=== PATIENT | female | born 1940 | race Caucasian/White ===

== ENCOUNTER → 2016-11-15 | Outpatient (CLI) | payer OTHER ==
[2016-11-15 10:45] LABS: BASOPHILS # (AUTO) 0.01 10*3/UL; BASOPHILS % (AUTO) 0.2 % (0-1); EOSINOPHILS % (AUTO) 2.3 % (0-8); HEMATOCRIT 38.1 % (37.0-47.0); HEMOGLOBIN 12.2 g/dL (12.0-16.0); IMM GRAN % (AUTO) 0.2 % (0-5); IMM GRAN# (AUTO) 0.01 10*3/UL; LYMPHOCYTES # (AUTO) 1.05 10*3/uL; LYMPHOCYTES % (AUTO) 17.6 % (10-50); MEAN PLATELET VOLUME 11.1 FL (7.4-12.2); MONOCYTES # (AUTO) 0.38 10*3/UL (0.3-0.8); MONOCYTES % (AUTO) 6.4 % (5-15); NEUTROPHILS # (AUTO) 4.38 10*3/UL; NEUTROPHILS % (AUTO) 73.3 % (50-80); RDW COEFFICIENT OF VARIATION 16.2 % (11.5-14.5); WHITE BLOOD COUNT 5.97 10^3/uL (4.8-10.8)
[2016-11-15 10:52] LABS: PLATELET MORPHOLOGY COMMENT NORMAL MORPHOLOGY (NORM)
[2016-11-15 10:55] LABS: BILIRUBIN,TOTAL 0.7 mg/dL (0.3-1.2); CALCIUM 10.2 mg/dL (8.7-10.7); LDL CHOLESTEROL,CALCULATED 107.6 mg/dL; POTASSIUM 4.1 meq/L (3.8-5.2); TOTAL PROTEIN 7.8 g/dL (6.1-8.0)
[2016-11-15 11:14] LABS: HEMOGLOBIN A1C 6.29 % (4.2-6.0); MEAN BLOOD GLUCOSE (CALC) 123.457 mg/dL
[2016-11-15 12:37] LABS: FREE T4 (FREE THYROXINE) 1.26 ng/dL (0.93-1.71)
== END ==
LOC: LAB 10:20
PROVIDERS: ATTEND Internal Medicine
DX: E11.9 Type 2 diabetes mellitus without complications (principal); E78.5 Hyperlipidemia, unspecified; D64.9 Anemia, unspecified; I10 Essential (primary) hypertension; E03.2 Hypothyroidism due to medicaments and other exogenous substances
CPT/HCPCS: 36415; 80053; 80061; 82728; 83036; 83540; 83550; 84439; 84443; 85025

== ENCOUNTER → 2017-03-13 | Outpatient (CLI) | payer OTHER ==
[2017-03-13 11:48] LABS: HEMOGLOBIN A1C 5.34 % (4.2-6.0)
[2017-03-13 11:52] LABS: CHOL/HDL RATIO 3.93 RATIO (0-4.0); LDL CHOLESTEROL,CALCULATED 169.8 mg/dL; SERUM ALBUMIN 4.2 g/dL (3.5-4.8)
[2017-03-13 14:04] LABS: CREATININE, URINE 87.1 MG/DL (15-500)
== END ==
LOC: LAB 11:21
PROVIDERS: ATTEND Internal Medicine
DX: E11.9 Type 2 diabetes mellitus without complications (principal); E78.5 Hyperlipidemia, unspecified; I10 Essential (primary) hypertension; E03.2 Hypothyroidism due to medicaments and other exogenous substances
CPT/HCPCS: 36415; 80053; 80061; 82043; 82550; 83036; 84443

== ENCOUNTER → 2017-05-16 | Outpatient (CLI) | payer OTHER | LOC: MMPC 11:11 | PROVIDERS: ATTEND Surgery | DX: L72.0 Epidermal cyst (principal) | CPT/HCPCS: 99212; G0463 ==